=== PATIENT | female | born 1990 ===

== ENCOUNTER → 2016-11-16 | Outpatient (REF) | LOC: WSOH 11:10 | DX: Z02.1 Encounter for pre-employment examination (principal); Z11.1 Encounter for screening for respiratory tuberculosis; Z01.83 Encounter for blood typing; Z00.00 Encounter for general adult medical examination without abnormal findings ==

== ENCOUNTER → 2016-11-30 | Outpatient (REF) | LOC: WSOH 11:00 | DX: Z11.1 Encounter for screening for respiratory tuberculosis (principal) ==

== ENCOUNTER → 2016-12-02 | Outpatient (REF) ==
[2016-12-02 20:32] LABS: HEPATITIS B SURFACE AB-QL Positive (())
[2016-12-06 23:13] LABS: VARICELLA INDEX 1.73 OD Ratio (>1.09)
== END ==
LOC: COL.EMP 11:20
PROVIDERS: Emergency Medicine
DX: Z02.1 Encounter for pre-employment examination (principal)